=== PATIENT | female | born 1945 | race Caucasian/White ===

== ENCOUNTER 2018-07-21 13:56 | Inpatient (IN) | payer MEDICARE, MEDICAID ==
[~2018-07-21] VITALS: Ht 162.6 cm; Wt 79.1 kg
[~2018-07-21 13:56] MED LIST: QUETIAPINE FUMARATE 100 MG TABLET PO SCH
--- NOTE | 2018-07-21 13:56 | NUR ---
PT BIBRA FROM HOME FOR N/V AND ABD PAIN; PT AAOX4, RESPIRATIONS EVEN AND UNLABORED, NO SOB, NAD NOTED, VSS, PENDING ER PROVIDERE RAVI
--- NOTE | 2018-07-21 14:46 | NUR ---
DR LEVINE MADE AWARE REGARDING MORPHINE, PER MD CHANGE TO DILAUDID 0.5MG IVP
[2018-07-21] MEDS ORDERED: HYDROMORPHONE INJ 0.5 MG/0.5 ML SYRINGE ONE (14:48)
[2018-07-21] MEDS ORDERED: ONDANSETRON HCL/PF 4 MG/2 ML VIAL ONE (14:48)
[2018-07-21] MEDS: MORPHINE SULFATE INJ 2 MG/ML DISP.SYRIN IV ONE ×2 (14:53→14:54)
[2018-07-21] MEDS ORDERED: ONDANSETRON HCL/PF 4 MG/2 ML VIAL IVP ONE (15:00)
[2018-07-21] MEDS ORDERED: IV NS 0.9% 1,000 ML BAG IV ONE ×2 (15:00→16:30)
[2018-07-21 15:07] LABS: BASOPHILS % (AUTO) 0.4 % (0.0-2.0); HEMATOCRIT 48 % (33-45); HEMOGLOBIN 16.2 g/dL (11.5-14.8); LYMPHOCYTES # (AUTO) 0.4 /CMM (0.8-4.8); LYMPHOCYTES % (AUTO) 3.9 % (20.0-44.0); MEAN CORPUSCULAR HGB CONC 34 g/dl (31.0-36.0); MEAN CORPUSCULAR VOLUME 89 fL (82-100); MONOCYTES # (AUTO) 0.4 /CMM (0.1-1.30); MONOCYTES % (AUTO) 3.4 % (2.0-12.0); NEUTROPHILS # (AUTO) 10.5 /CMM (1.8-8.9); NEUTROPHILS % (AUTO) 92.3 % (43.0-81.0); PLATELET COUNT (AUTO) 213 /CMM (150-450); RED BLOOD CELL COUNT(AUTO) 5.34 MIL/uL (4.0-5.2); WHITE BLOOD COUNT (AUTO) 11.4 K/uL (4.3-11.0)
[2018-07-21 15:14] LABS: CALCIUM, SERUM 8.9 mg/dL (8.5-10.1); CARBON DIOXIDE 28 mmol/L (21-32); CHLORIDE 103 mmol/L (98-107); CREATININE 0.9 mg/dL (0.6-1.3); GLUCOSE 154 mg/dL (74-106); POTASSIUM 3.6 mmol/L (3.5-5.1); SODIUM SERUM 142 mmol/L (136-145); UREA NITROGEN, BLOOD 16 mg/dL (7-18)
[2018-07-21 15:21] LABS: ALANINE AMINOTRANSFERASE 129 U/L (12-78); ALBUMIN 4.3 g/dL (3.4-5.0); ALKALINE PHOSPHATASE 104 U/L (46-116); ASPARTATE AMINOTRANSFERASE 106 U/L (15-37); BILIRUBIN,DIRECT 0.2 mg/dL (0.0-0.2); BILIRUBIN,TOTAL 1.2 mg/dL (0.2-1.0); TOTAL PROTEIN, SERUM 7.7 g/dL (6.4-8.2)
--- NOTE | 2018-07-21 15:22 | NUR ---
URINE COLLECTED AND SENT TO LAB
[2018-07-21] MEDS ORDERED: HYDROMORPHONE INJ 0.5 MG/0.5 ML SYRINGE IV ONE (15:30)
[2018-07-21 15:37] LABS: APPEARANCE,URINE Cloudy (CLEAR); BILIRUBIN,URINE Negative (NEGATIVE); BLOOD, URINE Large Ery/uL (NEGATIVE); COLOR,URINE Yellow (YELLOW); KETONES,URINE 80 (NEGATIVE); LEUKOCYTE ESTERASE ,URINE Moderate (NEGATIVE); NITRITE, URINE Positive (NEGATIVE); PH,URINE 5.5 (5.0-8.0); PROTEIN,URINE 100 mg/dl (NEGATIVE); UGLUCOSE Negative (NEGATIVE); UROBILINOGEN,URINE 0.2 EU/dL (0.2)
[2018-07-21 15:49] LABS: BACTERIA,URINE Many /HPF (None Seen); RBC,URINE 21-50 /HPF (0-2); SQUAMOUS EPITHELIAL CELL,UR Few /HPF (None Seen); WBC,URINE 51-80 /HPF (0-3)
[2018-07-21 15:53] LABS: LIPASE 11266 U/L (73-393)
[2018-07-21] MEDS ORDERED: PIPERACILLIN /TAZOBACTAM 3.375 G VIAL IV ONE (16:19)
[2018-07-21] MEDS ORDERED: IOHEXOL-300 100 ML VIAL IV ONE (16:19)
[2018-07-21] MEDS ORDERED: CT SWABBABLE VALVE TRANS SET 1 EA INFUS.SET MC ONE (16:19)
[2018-07-21] MEDS ORDERED: IV NS 0.9% 250 ML IV ONE (16:20)
[2018-07-21] MEDS ORDERED: TOCI162S SQ (16:30)
[2018-07-21] MEDS ORDERED: FLUT16SP16 BNOSTRILS (16:30)
[2018-07-21] MEDS ORDERED: NEBI5TAB8 PO (16:30)
[2018-07-21] MEDS ORDERED: DULO60CA63 PO (16:30)
[2018-07-21] MEDS ORDERED: OLME1TAB50 PO (16:30)
[2018-07-21] MEDS ORDERED: QUET200T84 PO (16:30)
[2018-07-21] MEDS ORDERED: ASPI-1152 PO (16:30)
[2018-07-21] MEDS ORDERED: FOLI1TAB16 PO (16:30)
[2018-07-21] MEDS ORDERED: PIPERACILLIN /TAZOBACTAM 3.375 G in IV D5W 50 ML IV ONE (16:30)
[2018-07-21] MEDS ORDERED: ERGO500040 PO (16:30)
[2018-07-21] MEDS ORDERED: MECL-102 PO (16:30)
[2018-07-21] MEDS ORDERED: AMLO5TAB9 PO (16:30)
[2018-07-21] MEDS ORDERED: MYRBETRIQ PO (16:30)
--- NOTE | 2018-07-21 17:16 | NUR ---
PAGED [employer] FOR PANEL - ENVIRONMENTAL PROJECT MANAGER DR. EMY MITCHELL
[2018-07-21] MEDS ORDERED: OLANZAPINE 5 MG/TAB.RAPDIS PO ONE (17:30)
[2018-07-21] MEDS ORDERED: IV NS 0.9% 1,000 ML IV PRN (18:59)
[2018-07-21] MEDS ORDERED: ZOLPIDEM TARTRATE 5 MG TABLET PO PRN (19:00)
[2018-07-21] MEDS ORDERED: Z GUARD REMEDY 2 OZ OINT TP PRN (19:00)
[2018-07-21] MEDS ORDERED: ERGOCALCIFEROL (VITAMIN D 2) 50,000 UNIT CAPSULE PO SCH (19:00)
[2018-07-21] MEDS ORDERED: LORAZEPAM INJ 2 MG/ML VIAL IV PRN (19:00)
[2018-07-21] MEDS ORDERED: hydrALAZINE HCL IV 20 MG VIAL IV PRN (19:00)
[2018-07-21] MEDS ORDERED: BENICAR HCT PO PRN (19:00)
[2018-07-21] MEDS ORDERED: MAG HYDROX/AL HYDROX/SIMETH 30 ML UDC PO PRN (19:00)
[2018-07-21] MEDS ORDERED: AMLODIPINE BESYLATE 5 MG TABLET PO PRN (19:00)
[2018-07-21] MEDS ORDERED: ONDANSETRON HCL/PF 4 MG/2 ML VIAL IVP PRN (19:00)
[2018-07-21] MEDS ORDERED: MAGNESIUM HYDROXIDE 30 ML UDC PO PRN (19:00)
[2018-07-21] MEDS ORDERED: ACETAMINOPHEN 325 MG TABLET PO PRN (19:00)
[2018-07-21] MEDS ORDERED: MECLIZINE HCL 25 MG TABLET PO PRN (19:00)
--- NOTE | 2018-07-21 19:19 | NUR ---
REPORT GIVEN TO JUAN ANTONIO YEBOAH FOR MALLY
--- NOTE | 2018-07-21 19:20 | NUR ---
MS RN NOTES RECEIVED PATIENT FROM ER IN STABLE CONDITION. GRANDDAUGHTER AT BEDSIDE. PATIENT SWAZI SPEAKING AND A/O X4. NO C/O PAIN OR DISCOMFORT. PERIPHERAL LINE INTACT AND PATENT. CALL LIGHT WITHIN REACH. ALL BELONGINGS KEPT NEAR BEDSIDE. ENCOURAGED USED OF CALL LIGHT FOR ASSISTANCE AND DEMONSTRATION GOOD UNDERSTANDING. WILL CONTINUE TO MONITOR
[2018-07-21] MEDS ORDERED: DEXTROSE 50%-WATER 50 ML DISP.SYRIN IV PRN (19:30)
[2018-07-21] MEDS: HYDROMORPHONE INJ 2 MG/ML DISP.SYRIN IV PRN (19:47)
[2018-07-21 20:00] VITALS: BP 163/78
[2018-07-21] MEDS: PIPERACILLIN /TAZOBACTAM 3.375 G in IV D5W 100 ML IV SCH (21:58)
[2018-07-22] MEDS ORDERED: PIPERACILLIN /TAZOBACTAM 3.375 G in IV D5W 50 ML IV SCH ×2
[2018-07-22] MEDS: BLOOD SUGAR DIAGNOSTIC 1 EACH STRIP IN SCH ×5 (01:36→23:14)
[2018-07-22] MEDS: HYDROMORPHONE INJ 2 MG/ML DISP.SYRIN IV PRN (02:59)
[2018-07-22] MEDS: PIPERACILLIN /TAZOBACTAM 3.375 G in IV D5W 100 ML IV SCH ×3 (05:08→21:37)
--- NOTE | 2018-07-22 06:16 | NUR ---
MS RN NOTES PATIENT ASLEEP IN BED WITH NO DISTRESS NOTED. CALL LIGHT WITHIN REACH. NO FURTHER C/O PAIN OR DISCOMFORT. AM FSBS 130, SLIDING SCALE REGULAR INSULIN HELD D/T NPO STATUS. PERIPHERAL LINE INTACT AND PATENT. BED IN LOW LOCK SETTING. ROOM FREE OF CLUTTER AND ALL BELONGINGS KEPT NEAR BEDSIDE. WILL ENDORSE TO ONCOMING SHIFT.
[2018-07-22 07:34] LABS: BASOPHILS # (AUTO) 0.1 /CMM (0.0-0.2); BASOPHILS % (AUTO) 0.4 % (0.0-2.0); HEMATOCRIT 43 % (33-45); HEMOGLOBIN 14.5 g/dL (11.5-14.8); LYMPHOCYTES # (AUTO) 0.8 /CMM (0.8-4.8); LYMPHOCYTES % (AUTO) 5.3 % (20.0-44.0); MEAN CORPUSCULAR HGB CONC 34 g/dl (31.0-36.0); MEAN CORPUSCULAR VOLUME 89 fL (82-100); MONOCYTES # (AUTO) 1.1 /CMM (0.1-1.30); MONOCYTES % (AUTO) 7.3 % (2.0-12.0); NEUTROPHILS # (AUTO) 13.4 /CMM (1.8-8.9); PLATELET COUNT (AUTO) 217 /CMM (150-450); WHITE BLOOD COUNT (AUTO) 15.4 K/uL (4.3-11.0)
[2018-07-22 07:50] LABS: ALANINE AMINOTRANSFERASE 83 U/L (12-78); ALBUMIN 3.5 g/dL (3.4-5.0); ALKALINE PHOSPHATASE 80 U/L (46-116); ASPARTATE AMINOTRANSFERASE 51 U/L (15-37); BILIRUBIN,TOTAL 1.1 mg/dL (0.2-1.0); CALCIUM, SERUM 7.6 mg/dL (8.5-10.1); CARBON DIOXIDE 26 mmol/L (21-32); CHLORIDE 107 mmol/L (98-107); CREATININE 0.9 mg/dL (0.6-1.3); GLUCOSE 135 mg/dL (74-106); MAGNESIUM 2.2 mg/dL (1.8-2.4); POTASSIUM 3.8 mmol/L (3.5-5.1); SODIUM SERUM 142 mmol/L (136-145); TOTAL PROTEIN, SERUM 6.4 g/dL (6.4-8.2); UREA NITROGEN, BLOOD 16 mg/dL (7-18)
[2018-07-22 07:52] LABS: CHOLESTEROL 178 mg/dL (<200); HDL CHOLESTEROL 88 mg/dL (40-60); LDL 89 mg/dL (0-99); TRIGLYCERIDES 52 mg/dL (30-150)
[2018-07-22 08:00] VITALS: BP 156/72
[2018-07-22 08:01] LABS: LIPASE 3910 U/L (73-393)
[2018-07-22] MEDS ORDERED: IV NS 0.9% 100 ML IV ONE (09:00)
[2018-07-22] MEDS ORDERED: FOLIC ACID 1 MG TABLET PO SCH (09:00)
[2018-07-22] MEDS ORDERED: ASPIRIN EC 81 MG TABLET.DR PO SCH (09:00)
[2018-07-22] MEDS: PANTOPRAZOLE 40 MG VIAL IV SCH (09:45)
--- NOTE | 2018-07-22 10:30 | NUR ---
m/s monument installer: notes pt in bed with eyes close, appears to be drowsy, arousable and verbally responsive. daughter concerns about her home medications that was given today, stated, "she hasn't taken her b/p medications and seroquel for a while now, and she only takes an an injection once month per her rheumatoid arthritis." dr. gaming notified and made aware re: pt's condition and also re: pt's home medications with order to d'c all home medications. order carried out and acknowledged. dr. gaming spoke to daughter over the phone. will continue to monitor.
--- NOTE | 2018-07-22 11:00 | NUR ---
m/s wirer: notes daughter still concern for pt being drowsy, pt remains arousable and verbally responsive. dr. gaming notified and made aware and will order a ct scan of head. daughter made aware. pt remains on iv fluids, infusing well. will continue to monitor.
--- NOTE | 2018-07-22 11:30 | NUR ---
m/s body fitter: notes dr. gaming at bedside and talking to daughter and grandson and all questions answered. pt down for ct brain via bed. will continue to monitor.
--- NOTE | 2018-07-22 12:00 | NUR ---
m/s hand compositor: notes pt back from cat scan. family remains at bedside. will monitor.
--- NOTE | 2018-07-22 12:15 | NUR ---
m/s decker operator: notes ct brain resulted and dr. gaming notified with no new order. pt remains drowsy, but arousable. daughter and grandson remains at bedside.
--- NOTE | 2018-07-22 12:30 | NUR ---
m/s gravity prospecting operator: notes family left and will be back later as stated.
--- NOTE | 2018-07-22 14:00 | NUR ---
m/s cobbler upper: notes brother visiting at this time.
[2018-07-22] MEDS: IV NS 0.9% 1,000 ML IV PRN (14:26)
[2018-07-22 16:00] VITALS: BP 147/75
--- NOTE | 2018-07-22 16:00 | NUR ---
m/s it systems manager: gi consult kenji (cadd manager) here and aware of consult. pt still asleep, but easily arousable. resp. even and unlabored. iv antibiotic still infusing. will continue to monitor.
--- NOTE | 2018-07-22 17:00 | NUR ---
m/s child specialist: notes pt assisted to bathroom at this time. pt more awake. daughter came back to visit. awaiting for gi to see pt.
--- NOTE | 2018-07-22 18:12 | NUR ---
m/s assistant property manager: gi consult seen and examined by kenji (data input clerk) at this time. kenji spoke to daughter and updated plan of care. pt remains npo. needs attended. call light within reach. will continue to monitor.
--- NOTE | 2018-07-22 18:45 | NUR ---
m/s ground support agent: notes received new orders from kenji (pattern and chain maker). orders acknowledged. pt remains npo. iv fluids infusing well. will continue to monitor.
--- NOTE | 2018-07-22 19:15 | NUR ---
m/s jeep mechanic: notes bedside report given to marisol (zahra) for continuity of care.
--- NOTE | 2018-07-22 19:18 | NUR ---
RN NOTES: RECEIVED PATIENT ASLEEP IN BED WITH IVF OF NS AT 100 ML/HR IV CANNULA LFA G#20,AMHARIC SPEAKING, A/0X4, SHE WAKE UP, ORIENTED TO UNIT AND STAFF,FALL, SAFETY AND ASPIRATION PRECAUTION OBSERVED, ON NPO MAY TAKE MED WITH SIPS OF WATER,ASSISTED TO THE BATHROOM, SHE LOOKS SLEEPY INSTRUCT TO CALL AT ALL TIMES, CALL LIGHT KEPT WITHIN EASY REACH,2 DAUGHTER PRESENT AT BED SIDE,BED LOW AND LOCKED.ON CLOSE WATCH.
[2018-07-22 20:00] VITALS: BP 154/66
--- NOTE | 2018-07-22 20:05 | NUR ---
Met with patient and two daughters at bedside. Patient speaks Estonian and understand few Bolivian. She is alert and pleasant. She lives alone locally on the second floor apartment.She is ambulatory and independent with adl's. Receives 100hrs/month of IHSS. Has good family support. She plan to return home once discharge. Addendum: 07/22/18 at 2004 by JUANA HANSON RN Amended: Links added.
--- NOTE | 2018-07-22 20:12 | NUR ---
RN NOTES: V/S CHECK BP-154/66 [place]-105. ASSESSED IF SHE HAS PAIN OR DISCOMFORT SHE VERBALIZE "IM OK" THEN SHE GO BACK TO SLEEP, WILL CONTINUE TO MONITOR SHE LOOKS COMFORTABLE AND NO COMPLAINTS AT THIS TIME.
[2018-07-22] MEDS: METRONIDAZOLE 500MG/ NS 100ML 500 MG in PREMIX 1 EA IV SCH (20:22)
--- NOTE | 2018-07-22 21:01 | NUR ---
RN NOTES: AWAKE ASSISTED TO BATHROOM, WHEN SHE RETURNED BACK TO BED REQUEST FOR TYLENOL, COMPLAINED OF MILD PAIN, PRN MEDICATION GIVEN AFTER NON PHARMACOLOGIC INTERVENTION WAS RENDERED, KEPT WARM AND DIM LIGHT.
--- NOTE | 2018-07-22 21:13 | NUR ---
RN NOTES: KEEP ON CLOSE WATCH, CALLS AND NEEDS ATTENDED, LATEST AR-89, SHE VERBALIZED SHE FEELS BETTER, TOOK SIPS OF WATER.SLEEPING ON FLAT POSITION, WITH O2 AT 2L/MIN VIA NC.
--- NOTE | 2018-07-22 23:16 | NUR ---
RN NOTES: AWAKE, ASSISTED TO THE BATHROOM,EXPLAINED TO HER NEED TO CHECK HER BLOOD SUGAR SHE AGREED, BLOOD SUGAR-121,NO INSULIN PER SCALE, SHE REQUEST "PLEASE DO NOT CHECK SUGAR ANYMORE, I DO NOT HAVE SUGAR, NO MORE CHECKING IN THE MORNING",WILL RELAY TO DR. ADRIAN IN THE MORNING SHE REFUSE FOR FURTHER BLOOD SUGAR TEST.
--- NOTE | 2018-07-23 00:42 | NUR ---
RN NOTES: ASLEEP AT SHORT INTERVALS, AWAKE, ASSISTED TO THE BATHROOM, ADEQUATE URINE OUTPUT,SHE VERBALIZED "I HAVE A BACK PAIN BUT THIS IS LONG TIME BACK", I OFFERED PAIN MEDICATION AND DO BACK RUB, SHE SAID "NO I DONT WANT ANY MEDICATION ANYMORE", KEPT COMFORTABLE IN BED, BACK RUB RENDERED, THEN SLOWLY SHE GET BACK TO SLEEP.
[2018-07-23] MEDS: HYDROMORPHONE INJ 2 MG/ML DISP.SYRIN IV PRN ×4 (02:40→22:05)
--- NOTE | 2018-07-23 02:46 | NUR ---
RN NOTES: PATIENT CLAIMED UNABLE TO SLEEP AFTER SHE WAKE UP TO PEE,PAIN 10/10,GENERALIZED AND BACK PAIN, OFFERED PAIN MEDICATION FOR SEVERE PAIN, SHE AGREED TO GET DILAUDID INJECTION, LATEST BP-150/70 MA-98,.KEPT COMFORTABLE IN BED CALL LIGHT WITHIN EASY REACH.
[2018-07-23] MEDS: METRONIDAZOLE 500MG/ NS 100ML 500 MG in PREMIX 1 EA IV SCH ×3 (04:00→20:48)
--- NOTE | 2018-07-23 04:51 | NUR ---
RN NOTES: ABLE TO SLEEP AND REST AFTER HER PAIN MEDICATION,NO SIGN OF SOB OR ANY DISCOMFORT, KEPT RESTED.DUE IV/ATB GIVEN.
[2018-07-23] MEDS: BLOOD SUGAR DIAGNOSTIC 1 EACH STRIP IN SCH ×3 (05:00→17:40)
[2018-07-23] MEDS: PIPERACILLIN /TAZOBACTAM 3.375 G in IV D5W 100 ML IV SCH ×3 (05:00→22:05)
--- NOTE | 2018-07-23 05:01 | NUR ---
RN NOTES: PATIENT STRONGLY REFUSED FOR BLOOD SUGAR CHECK, SHE WANTS IT TO BE DISCONTINUE,CONTINUE TO BE MONITORED FOR ANY SIGN OF HYPER/HYPOGLYCEMIA.
--- NOTE | 2018-07-23 06:30 | NUR ---
RN NOTES: PATIENT STILL ASLEEP, KEPT ON CLOSE WATCH,RESTING,IV/ATB ONGOING, O2 CONTINUED,SLEEPING COMFORTABLY,BED LOW AND LOCKED, CALL LIGHT WITH EASY REACH, FOR LABS THIS MORNING, LATEST WEIGHT-174.8 LBS,STILL NPO, CALL LIGHT AND PERSONAL BELONGINGS KEPT WITHIN EASY REACH. ENDORSED FOR CONTINUITY OF CARE.
[2018-07-23 07:37] LABS: BASOPHILS % (AUTO) 0.2 % (0.0-2.0); EOSINOPHILS % (AUTO) 0.1 % (0.0-6.0); HEMATOCRIT 44 % (33-45); HEMOGLOBIN 14.8 g/dL (11.5-14.8); LYMPHOCYTES # (AUTO) 0.9 /CMM (0.8-4.8); MEAN CORPUSCULAR HGB CONC 34 g/dl (31.0-36.0); MEAN CORPUSCULAR VOLUME 90 fL (82-100); MONOCYTES % (AUTO) 6.3 % (2.0-12.0); NEUTROPHILS # (AUTO) 13.8 /CMM (1.8-8.9); NEUTROPHILS % (AUTO) 87.4 % (43.0-81.0); PLATELET COUNT (AUTO) 183 /CMM (150-450); RED BLOOD CELL COUNT(AUTO) 4.89 MIL/uL (4.0-5.2); WHITE BLOOD COUNT (AUTO) 15.8 K/uL (4.3-11.0)
[2018-07-23 07:51] LABS: ALANINE AMINOTRANSFERASE 54 U/L (12-78); ALBUMIN 3.3 g/dL (3.4-5.0); ALKALINE PHOSPHATASE 79 U/L (46-116); ASPARTATE AMINOTRANSFERASE 31 U/L (15-37); BILIRUBIN,TOTAL 1.2 mg/dL (0.2-1.0); CALCIUM, SERUM 7.9 mg/dL (8.5-10.1); CARBON DIOXIDE 26 mmol/L (21-32); CHLORIDE 105 mmol/L (98-107); CREATININE 0.8 mg/dL (0.6-1.3); GLUCOSE 130 mg/dL (74-106); LIPASE 597 U/L (73-393); POTASSIUM 3.4 mmol/L (3.5-5.1); SODIUM SERUM 141 mmol/L (136-145); TOTAL PROTEIN, SERUM 6.4 g/dL (6.4-8.2); UREA NITROGEN, BLOOD 14 mg/dL (7-18)
[2018-07-23 07:58] LABS: ALBUMIN 3.4 g/dL (3.4-5.0); BILIRUBIN,DIRECT 0.2 mg/dL (0.0-0.2); BILIRUBIN,TOTAL 1.2 mg/dL (0.2-1.0); TOTAL PROTEIN, SERUM 6.3 g/dL (6.4-8.2)
--- NOTE | 2018-07-23 08:00 | NUR ---
RN NOTES RECEIVED PATIENT IN THE BED A/O X4, PATIENT WAS COMPLAINING OF GENERALIZED PAIN, V/S TAKEN STABLE, SCHEDULED MEDICATION ADMINISTERED. INFUSING NS AT LEFT FA INTACT, NEEDS ATTENDED AND ANTICIPATED. CALL LIGHT WITHIN TO REACH, SAFETY PRECAUTION MAINTAINED ALL THE TIME.
[2018-07-23] MEDS: PANTOPRAZOLE 40 MG VIAL IV SCH (08:11)
--- NOTE | 2018-07-23 08:13 | NUR ---
RN NOTES ADMINISTERED DILAUDID 0.5 MG /ML IV PUSH PAIN 10 PER PATIENT REQUEST. V/S TAKEN BP -150/80, P-104, CONTINUED MONITORING.
[2018-07-23 08:15] VITALS: BP 150/80
[2018-07-23 08:17] VITALS: BP 199/110
--- NOTE | 2018-07-23 09:00 | NUR ---
RN NOTES MEDICATION WERE ADMINISTERED FOR PAIN EFFECTIVE, PATIENT RESTING IN THE BED, NO RESPIRATORY DISTRESS, UNLABORED. PATIENT TURN AND REPOSTION SELF IN THE BED, CALL LIGHT WITHIN TO REACH, SAFETY PRECAUTION MAINTAINED ALL THE TIME.
[2018-07-23] MEDS: POTASSIUM CL. PREMIX PERIPHER. 50 ML IV SCH ×2 (09:33→12:28)
--- NOTE | 2018-07-23 12:00 | NUR ---
RN NOTES PATIENT REFUSED BLOOD SUGAR TO BE TAKEN, PATIENT STABLE, FAMILY NEXT TO THE BED, SAFETY PRECAUTION MAINTAINED ALL THE TIME.
[2018-07-23 16:00] VITALS: BP 183/82
--- NOTE | 2018-07-23 16:18 | NUR ---
RN NOTES ADMINISTERED DILAUDID 0.5 MG/ML IV PUSH FOR GENERALIZED [PAIN 7/10 PER PATIENT REQUEST, V/S TAKEN BP -183/82, P-101.
--- NOTE | 2018-07-23 18:30 | NUR ---
RN NOTES PATIENT STABLE, MEDICATION WERE ADMINISTERED FOR PAIN EFFECTIVE. V/S STABLE. BECAUSE OF PATIENT NOT NPO HIDA TEST POSTPONED TOMORROW 07/24/18 0800 STAT PER TRAILER ASSEMBLER NAME FREDY. PATIENT REFUSED BLOOD GLUCOSE TO BE TAKEN. FAMILY NEXT TO THE BED, INFUSING NS AT 100 ML/HR INTACT ON RIGHT WRIST. CALL LIGHT WITHIN TO REACH. SAFETY PRECAUTION MAINTAINED ALL THE TIME. ENDORSED ONCOMING NURSE FOR PLAN OF CARE.
--- NOTE | 2018-07-23 19:00 | NUR ---
RN NOTES PATIENT SIGN CONSENT FORM FOR HIDA.
--- NOTE | 2018-07-23 19:30 | NUR ---
MS RN NOTES RECEIVED ON BED A/O X4,BREATHING REGULAR,NOT IN ANY FORM OF DISTRESS.SALINE LOCK RIGHT WRIST INTACT AND PATENT.ON CLEAR LIQUID,NPO POST MIDNIGHT FOR HYDA SCAN IN THE MORNING,PATIENT AWARE.WILL CONTINUE TO MONITOR STATUS.
[2018-07-23 20:00] VITALS: BP 149/83
--- NOTE | 2018-07-23 22:05 | NUR ---
MS RN NOTES PAIN MANAGEMENT C/O MID LOWER BACK PAIN 8/10 ON PAIN SCALE,MEDICATED WITH DILAUDID 1MG IV ORDERED FOR SEVERE PAIN
--- NOTE | 2018-07-24 | NUR ---
MS RN NOTES ACC-CHECK BLOOD SUGAR CHECK 133,2 UNITS COVERAGE HELD,NPO STATUS FOR HIDA SCAN
[2018-07-24] MEDS: BLOOD SUGAR DIAGNOSTIC 1 EACH STRIP IN SCH ×4 (00:09→17:33)
[2018-07-24] MEDS: INSULIN REGULAR, HUMAN 100 UNIT/ML 3 ML VIAL SQ PRN ×3 (00:18→17:33)
--- NOTE | 2018-07-24 04:30 | NUR ---
MS RN NOTES AWAKE,ASSISTED TO THE BATHROOM
[2018-07-24] MEDS: METRONIDAZOLE 500MG/ NS 100ML 500 MG in PREMIX 1 EA IV SCH ×2 (05:03→13:50)
--- NOTE | 2018-07-24 05:15 | NUR ---
MS RN NOTES ACCU-CHECK BLOOD SUGAR CHECK 138, 2 UNITS HUMULIN R HELD,NPO STATUS GOING FOR HIDA SCAN
[2018-07-24] MEDS: PIPERACILLIN /TAZOBACTAM 3.375 G in IV D5W 100 ML IV SCH ×2 (06:10→14:59)
--- NOTE | 2018-07-24 06:10 | NUR ---
recieved from 3rd floor/ placed in room 200 alert and orientated x4 npo for she is scheduled for a hida scan this am
--- NOTE | 2018-07-24 06:15 | NUR ---
MS RN NOTES SLEPT WITH INTERVALS,KEPT NPO FOR HEPATO BILIARY HIDA SCAN AT 0800 TO R/O CHOLECYSTITIS.SALINE LOCK REMAINS PATENT RIGHT WRIST.IV ABX TOLERATED WELL.IN NO ACUTE DISTRESS.WILL ENDORSE TO DAY NURSE FOR MALLY.IN MS 2.
[2018-07-24 07:15] LABS: BASOPHILS % (AUTO) 0.2 % (0.0-2.0); HEMATOCRIT 44 % (33-45); HEMOGLOBIN 14.6 g/dL (11.5-14.8); LYMPHOCYTES # (AUTO) 0.8 /CMM (0.8-4.8); LYMPHOCYTES % (AUTO) 4.5 % (20.0-44.0); MEAN CORPUSCULAR HGB CONC 33 g/dl (31.0-36.0); MEAN CORPUSCULAR VOLUME 90 fL (82-100); MONOCYTES % (AUTO) 6.1 % (2.0-12.0); NEUTROPHILS # (AUTO) 15.2 /CMM (1.8-8.9); NEUTROPHILS % (AUTO) 89.2 % (43.0-81.0); PLATELET COUNT (AUTO) 187 /CMM (150-450); RED BLOOD CELL COUNT(AUTO) 4.87 MIL/uL (4.0-5.2)
[2018-07-24 07:31] LABS: ALANINE AMINOTRANSFERASE 40 U/L (12-78); ALBUMIN 3.4 g/dL (3.4-5.0); ALKALINE PHOSPHATASE 77 U/L (46-116); ASPARTATE AMINOTRANSFERASE 25 U/L (15-37); BILIRUBIN,TOTAL 1.2 mg/dL (0.2-1.0); CALCIUM, SERUM 7.9 mg/dL (8.5-10.1); CARBON DIOXIDE 27 mmol/L (21-32); CHLORIDE 103 mmol/L (98-107); CREATININE 0.9 mg/dL (0.6-1.3); GLUCOSE 136 mg/dL (74-106); PHOSPHORUS 2.3 mg/dL (2.5-4.9); POTASSIUM 3.4 mmol/L (3.5-5.1); SODIUM SERUM 138 mmol/L (136-145); TOTAL PROTEIN, SERUM 6.4 g/dL (6.4-8.2); UREA NITROGEN, BLOOD 14 mg/dL (7-18)
--- NOTE | 2018-07-24 07:59 | NUR ---
MS RN NOTES PATIENT RECEIVED RESTING INSIDE ROOM. AWAKE, ALERT AND ORIENTED, VERBALLY RESPONSIVE AND RESPONDS TO VERBAL AND TACTILE STIMULI. BREATHING EVEN AND UNLABORED. NO ACUTE DISTRESS AT THIS TIME. PATIENT CALM AND RELAXED. ON NPO STATUS AT THIS TIME. AWAITING HIDA SCAN. PATIENT AWARE AND VERBALIZED UNDERSTANDING. WILL CONTINUE TO MONITOR. BED LOCKED AND IN LOW POSITION. BILATERAL UPPER SIDE RAILS UP AND LOCKED. CALL LIGHT WITHIN EASY REACH
[2018-07-24 08:00] VITALS: BP 186/93
[2018-07-24] MEDS: PANTOPRAZOLE 40 MG VIAL IV SCH (08:21)
[2018-07-24] MEDS ORDERED: POTASSIUM CL. PREMIX PERIPHER. 50 ML IV SCH (09:28)
[2018-07-24] MEDS: HYDROMORPHONE INJ 2 MG/ML DISP.SYRIN IV PRN ×3 (09:34→20:21)
--- NOTE | 2018-07-24 09:59 | NUR ---
NM: HIDA SCAN WAS COMPLETED. TECH:RB.
[2018-07-24] MEDS: Potassium Chloride 10 MEQ, LIDOCAINE HCL/PF 1% 1 ML in IV D5W 50 ML IV SCH ×2 (10:41→11:00)
[2018-07-24] MEDS ORDERED: POTASSIUM CHLORIDE 10 MEQ TABLET.SA PO ONE (13:30)
[2018-07-24] MEDS ORDERED: K PHOS NEUTRAL 250 MG TABLET PO ONE (13:30)
[2018-07-24] MEDS ORDERED: Sodium Phosphate 15 MMOL in IV D5W 250 ML IV ONE (14:00)
[2018-07-24 16:00] VITALS: BP 167/92
[2018-07-24] MEDS ORDERED: LEVOFLOXACIN (500MG) 500 MG TABLET PO ONE (18:00)
--- NOTE | 2018-07-24 18:20 | NUR ---
MS RN NOTES PATIENT SEEN BY AMINA CHO FOR ID. WITH NEW ORDERS NOTED AND CARRIED OUT. PATIENT MADE AWARE AND VERBALIZED UNDERSTANDING. WILL CONTINUE TO MONITOR
--- NOTE | 2018-07-24 18:52 | NUR ---
MS RN NOTES PATIENT RESTING INSIDE ROOM. SLEEPING, EASILY AROUSABLE THROUGH VERBAL AND TACTILE STIMULI. BREATHING EVEN AND UNLABORED. NO ACUTE DISTRESS. DENIES ANY PAIN OR DISCOMFORT. NO CHANGES IN LOC NOTED AT THIS TIME. PATIENT CALM AND RELAXED. PATIENT KEPT CLEAN, DRY AND COMFORTABLE. ALL NURSING NEEDS ATTENDED AND MET. WILL ENDORSE TO INCOMING SHIFT FOR MALLY. BED LOCKED AND IN LOW POSITION. BILATERAL UPPER SIDE RAILS UP AND LOCKED. CALL LIGHT WITHIN EASY REACH
--- NOTE | 2018-07-24 19:30 | NUR ---
RECEIVED PATIENT IN BED AWAKE, AO X 3, ABLE TO MAKE NEEDS KNOWN. NO ACUTE DISTRESS NOTED. MONITORED FOR PAIN. IV SITE PATENT, INTACT; IVF INFUSING ORDERED. SAFETY REMINDERS GIVEN. ON LOW BED WITH BILATERAL UPPER SIDE RAILS UP. CALL VARGAS WITHIN EASY REACH. WILL CONTINUE TO MONITOR.
[2018-07-24 20:00] VITALS: BP 199/95
[2018-07-24] MEDS: IV NS 0.9% 1,000 ML IV PRN (20:08)
[2018-07-24] MEDS: METRONIDAZOLE 500 MG TABLET PO SCH (20:09)
[2018-07-25] MEDS: HYDROMORPHONE INJ 2 MG/ML DISP.SYRIN IV PRN (03:44)
[2018-07-25] MEDS: METRONIDAZOLE 500 MG TABLET PO SCH ×2 (04:29→12:05)
[2018-07-25] MEDS: BLOOD SUGAR DIAGNOSTIC 1 EACH STRIP IN SCH ×3 (06:00→12:00)
--- NOTE | 2018-07-25 06:45 | NUR ---
PATIENT ASLEEP, EASILY AROUSABLE. RESPIRATIONS EVEN. NO SIGNS OF PAIN NOTED. DUE MEDS GIVEN WITH NO ASE NOTED. PATIENT REFUSED ACCUCHECK. PATIENT ALSO REQUESTED TO BE TAKEN OFF IVF AT THIS TIME. NEEDS ATTENDED. SAFETY PRECAUTIONS AND COMFORT MEASURES IN PLACE. WILL GIVE REPORT TO DAY SHIFT FOR CONTINUITY OF CARE.
--- NOTE | 2018-07-25 07:24 | NUR ---
MS RN NOTES PATIENT RECEIVED RESTING INSIDE ROOM, SLEEPING, EASILY AROUSABLE THROUGH VERBAL AND TACTILE STIMULI. BREATHING EVEN AND UNLABORED. NO ACUTE DISTRESS AT THIS TIME. DENIES ANY PAIN OR DISCOMFORT. NO CHANGES IN LOC NOTED. PATIENT DOESNT WANT TO HAVE IVF AT THIS TIME. R&B EXPLAINED BUT TO NO AVAIL, PATIENT STRONGLY REFUSED TO HAVE IVF AND INSISTED TO KEEP IT OFF. RESPECTED PATIENT RIGHTS. WILL CONTINUE TO MONITOR. BED LOCKED AND IN LOW POSITION. BILATERAL UPPER SIDE RAILS UP AND LOCKED. CALL LIGHT WITHIN EASY REACH
[2018-07-25] MEDS: PANTOPRAZOLE 40 MG VIAL IV SCH (08:12)
[2018-07-25 09:55] VITALS: BP 155/73
[2018-07-25 10:21] LABS: ALANINE AMINOTRANSFERASE 32 U/L (12-78); ALBUMIN 3.1 g/dL (3.4-5.0); ALKALINE PHOSPHATASE 105 U/L (46-116); ASPARTATE AMINOTRANSFERASE 20 U/L (15-37); BILIRUBIN,TOTAL 0.9 mg/dL (0.2-1.0); CALCIUM, SERUM 7.8 mg/dL (8.5-10.1); CARBON DIOXIDE 29 mmol/L (21-32); CHLORIDE 98 mmol/L (98-107); CREATININE 0.8 mg/dL (0.6-1.3); GLUCOSE 178 mg/dL (74-106); MAGNESIUM 1.7 mg/dL (1.8-2.4); PHOSPHORUS 2.6 mg/dL (2.5-4.9); POTASSIUM 2.9 mmol/L (3.5-5.1); SODIUM SERUM 136 mmol/L (136-145); TOTAL PROTEIN, SERUM 5.9 g/dL (6.4-8.2); UREA NITROGEN, BLOOD 11 mg/dL (7-18)
[2018-07-25 10:25] LABS: BASOPHILS % (AUTO) 0.1 % (0.0-2.0); EOSINOPHILS % (AUTO) 0.2 % (0.0-6.0); HEMATOCRIT 43 % (33-45); HEMOGLOBIN 14.2 g/dL (11.5-14.8); LYMPHOCYTES # (AUTO) 0.8 /CMM (0.8-4.8); LYMPHOCYTES % (AUTO) 5.4 % (20.0-44.0); MEAN CORPUSCULAR HGB CONC 33 g/dl (31.0-36.0); MEAN CORPUSCULAR VOLUME 90 fL (82-100); MONOCYTES # (AUTO) 1.2 /CMM (0.1-1.30); NEUTROPHILS # (AUTO) 12.9 /CMM (1.8-8.9); NEUTROPHILS % (AUTO) 86.3 % (43.0-81.0); PLATELET COUNT (AUTO) 193 /CMM (150-450); RED BLOOD CELL COUNT(AUTO) 4.74 MIL/uL (4.0-5.2)
[2018-07-25] MEDS ORDERED: POTASSIUM CHLORIDE 20 MEQ TAB.PRT.SR PO ONE (12:00)
[2018-07-25] MEDS ORDERED: MAGNESIUM OXIDE 400 MG TABLET PO ONE (12:00)
[2018-07-25] MEDS ORDERED: METR500T PO (13:07)
[2018-07-25] MEDS ORDERED: CIPR500T5 PO (13:07)
[2018-07-25] MEDS ORDERED: MAGNESIUM HYDROXIDE 30 ML UDC PO ONE (15:30)
--- NOTE | 2018-07-25 16:11 | NUR ---
MS RN NOTES PATIENT WITH ORDER FROM DR. VICTOR TO OK TO DISCHARGE HOME. AMINA CHO (ID) MADE AWARE AND CLEARED PATIENT TO DISCHARGE HOME. PATIENT WITH WRITTEN PRESCRIPTION FOR ATB FROM DR. VICTOR PROVIDED TO PATIENT. DISCHARGE TEACHING AND EDUCATION GIVEN AND PROVIDED TO PATIENT AND VERBALIZED UNDERSTANDING. ALL BELONGINGS COMPLETE ON DISCHARGE, NO REPORT OF MISSING INVENTORY. IV REMOVED WITH MINIMAL BLEEDING NOTED. PATIENT LEFT UNIT AT 1545 IN STABLE CONDITION VIA WHEELCHAIR. PATIENT BREATHING EVEN AND UNLABORED, NO ACUTE DISTRESS, NO C/O PAIN OR DISCOMFORT. ACCOMPANIED BY NURSING STAFF TO PARKING LOT. LEFT FACILITY PREMISES VIA PRIVATE CAR. MD MADE AWARE OF PATIENT DISCHARGE
[2018-07-25] MEDS ORDERED: LEVOFLOXACIN (250MG) 250 MG TABLET PO SCH (18:00)
== END 2018-07-25 15:48 | disposition home or self-care (01) | DRG 871 ==
LOC: ER 13:59 → MED 18:44 → MEDSG2 07-24 06:24 → MED 07-24 11:58
PROVIDERS: ADMIT Nurse Practitioner Acute Care; ATTEND Student in an Organized Health Care Education/Training Program
DX: A41.9 Sepsis, unspecified organism (principal); K85.90 Acute pancreatitis without necrosis or infection, unspecified; K51.50 Left sided colitis without complications; D68.59 Other primary thrombophilia; N39.0 Urinary tract infection, site not specified; K57.30 Diverticulosis of large intestine without perforation or abscess without bleeding; K80.20 Calculus of gallbladder without cholecystitis without obstruction; B96.20 Unspecified Escherichia coli [E. coli] as the cause of diseases classified elsewhere; I10 Essential (primary) hypertension; R74.0 Nonspecific elevation of levels of transaminase and lactic acid dehydrogenase [LDH]; M06.9 Rheumatoid arthritis, unspecified; I11.9 Hypertensive heart disease without heart failure; E66.9 Obesity, unspecified; Z68.29 Body mass index [BMI] 29.0-29.9, adult; R32 Unspecified urinary incontinence; Z87.440 Personal history of urinary (tract) infections
CPT/HCPCS: 36415; 70450-TC; 71045-TC; 76705-TC; 78226; 80048-TC; 80053-TC; 80061-TC; 80074; 80076-TC; 81000-TC; 82150-TC; 82962-TC; 83605-TC; 83690-TC; 83735-TC; 84100-TC; 84484-TC; 85025-TC; 85730-TC; 87040-TC; 87081-TC; 87086-TC; 87186-TC; A4216; A9537; A9563; C9113; G0378; J1170; J1815; J2060; J2405; J2543; J3480; J3490; J7030; J7050; J7060; Q9967